=== PATIENT | male | born 1940 | race Caucasian/White ===

== ENCOUNTER 2017-08-13 16:13 | Emergency (ER) | payer MEDICARE, OTHER ==
--- NOTE | 2017-08-13 17:44 | EDM.PDOC ---
ED HPI GENERAL MEDICAL PROBLEM - General Chief Complaint: Upper Extremity Injury/Pain Stated Complaint: PAINS IN BOTH ARMS Time Seen by Provider: 08/13/17 16:35 Source of Information: Reports: Patient History Limitations: Reports: No Limitations - History of Present Illness INITIAL COMMENTS - FREE TEXT/NARRATIVE: pt arrived with chest pain in both forearms. He had something similar in 2012 and he ended up with a stent with the soaker in [place]. He sates this has been going on since late May and he is becoming concerned. Onset: Gradual, Other ( Pt has had daily since late May. ) Duration: Day(s): Location: Reports: Upper Extremity, Left, Upper Extremity, Right, Other (Pt has no chest pain) Associated Symptoms: Reports: No Other Symptoms Bilateral Arm Pain Score (Numeric/FACES): 1 - Related Data Allergies Allergy/AdvReac Type Severity Reaction Status Date / Time No Known Allergies Allergy Verified 08/13/17 16:37 Home Meds: Home Meds Aspirin [Ecotrin] 1 tab PO DAILY 08/13/17 [History] Lisinopril 1 tab PO BID 08/13/17 [History] atorvaSTATin [Lipitor] 10 mg PO BEDTIME 08/13/17 [History] metFORMIN [Glucophage] 1 tab PO BID 08/13/17 [History] Past Medical History HEENT History: Reports: Cataract Cardiovascular History: Reports: High Cholesterol, Hypertension, Stents Musculoskeletal History: Reports: Fracture Neurological History: Reports: Concussion Endocrine/Metabolic History: Reports: Diabetes, Type II - Past Surgical History HEENT Surgical History: Reports: Cataract Surgery Cardiovascular Surgical History: Reports: Coronary Artery Stent Social & Family History - Tobacco Use Smoking Status *Q: Former Smoker Used Tobacco, but Quit: Yes Month Tobacco Last Used: 0 - Alcohol Use Days Per Week of Alcohol Use: 4 Number of Drinks Per Day: 1 Total Drinks Per Week: 4 - Recreational Drug Use Recreational Drug Use: No Review of Systems - Review of Systems Review Of Systems: See Below Constitutional: Reports: No Symptoms Eyes: Reports: No Symptoms Ears: Reports: No Symptoms Nose: Reports: No Symptoms Mouth/Throat: Reports: No Symptoms Respiratory: Reports: No Symptoms Cardiovascular: Reports: No Symptoms GI/Abdominal: Reports: No Symptoms Genitourinary: Reports: No Symptoms Musculoskeletal: Reports: Other (pt has pain in the forearm of both upper extremities. ) Skin: Reports: No Symptoms ED EXAM, GENERAL - Physical Exam Exam: See Below Free Text/Narrative:: pt arrived with a history of pain in both forearms on and off since May. This is similar to the pain he had when he had a stent placed. --2012 Exam Limited By: No Limitations General Appearance: Alert, Anxious, Mild Distress Ears: Normal TMs Nose: Normal Inspection Throat/Mouth: Normal Inspection Head: Atraumatic Neck: Normal Inspection Respiratory/Chest: No Respiratory Distress Cardiovascular: Regular Rate, Rhythm GI/Abdominal: Soft, Non-Tender (Male) Exam: Deferred Rectal (Males) Exam: Deferred Back Exam: Normal Inspection Extremities: Normal Inspection Neurological: Alert, Oriented, Normal Cognition Psychiatric: Normal Affect Course - Vital Signs Last Recorded V/S: Last Vital Signs Temp 35.3 C 08/13/17 16:35 Pulse 82 08/13/17 17:24 Resp 14 08/13/17 17:24 BP 144/89 H 08/13/17 17:24 Pulse Ox 96 08/13/17 17:24 - Orders/Labs/Meds Orders: Active Orders 24 hr Category Date Time Status EKG Documentation Completion [RC] ASDIRECTED Care 08/13/17 16:34 Active EKG 12 Lead [EK] Routine Ther 08/13/17 16:34 Ordered Labs: Laboratory Tests 08/13/17 08/13/17 08/13/17 Range/Units 17:12 17:12 17:12 WBC 6.7 (4.5-11.0) K/uL RBC 4.52 (4.30-5.90) M/uL Hgb 15.0 (12.0-15.0) g/dL Hct 42.9 (40.0-54.0) % MCV 95 (80-98) fL MCH 33 H (27-31) pg MCHC 35 (32-36) % Plt Count 180 (150-400) K/uL Neut % (Auto) 69 H (36-66) % Lymph % (Auto) 18 L (24-44) % [place] % (Auto) 10 H (2-6) % Eos % (Auto) 2 (2-4) % Baso % (Auto) 1 (0-1) % Sodium 139 L (140-148) mmol/L Potassium 4.3 (3.6-5.2) mmol/L Chloride 101 (100-108) mmol/L Carbon Dioxide 29 (21-32) mmol/L Anion Gap 13.3 (5.0-14.0) mmol/L BUN 20 H (7-18) mg/dL Creatinine 1.4 H (0.8-1.3) mg/dL Est Cr Clr Drug Dosing 50.81 mL/min Estimated GFR (MDRD) 50 L (>60) Glucose 213 H (74-106) mg/dL Calcium 9.1 (8.5-10.1) mg/dL Total Bilirubin 0.7 (0.2-1.0) mg/dL AST 22 (15-37) U/L ALT 39 (12-78) U/L Alkaline Phosphatase 80 (46-116) U/L Creatine Kinase 104 (39-308) U/L Troponin I < 0.017 (0.000-0.056) ng/mL Total Protein 7.2 (6.4-8.2) g/dL Albumin 3.8 (3.4-5.0) g/dL Globulin 3.4 (2.3-3.5) g/dL Albumin/Globulin Ratio 1.1 L (1.2-2.2) - Re-Assessments/Exams Free Text/Narrative Re-Assessment/Exam: 08/13/17 17:57 pt had a ekg which did not show acute changes. He had normal trop. His creatnine is borderline at 1.4. 08/13/17 17:58 His bs is 213. Departure - Departure Time of Disposition: 18:04 Disposition: Home, Self-Care 01 Condition: Fair Clinical Impression: Angina at rest - Discharge Information Referrals: Chaitanya Lopez MD [Primary Care Provider] - Forms: ED Department Discharge Care Plan Goals: rtc for a leexiscan, appt with Dr Lopez on or thu. rtc if pain should suddenly get worse. - My Orders Last 24 Hours: My Active Orders 08/13/17 16:34 EKG Documentation Completion [RC] ASDIRECTED EKG 12 Lead [EK] Routine - Assessment/Plan Last 24 Hours: My Active Orders 08/13/17 16:34 EKG Documentation Completion [RC] ASDIRECTED EKG 12 Lead [EK] Routine
== END 2017-08-13 18:59 | disposition home or self-care (01) ==
LOC: JP.ED 16:13
DX: I20.9 Angina pectoris, unspecified (principal); I10 Essential (primary) hypertension; E78.00 Pure hypercholesterolemia, unspecified; Z87.891 Personal history of nicotine dependence; E11.9 Type 2 diabetes mellitus without complications; Z79.82 Long term (current) use of aspirin; Z79.84 Long term (current) use of oral hypoglycemic drugs; Z88.8 Allergy status to other drugs, medicaments and biological substances
CPT/HCPCS: 36415; 80053; 82550; 84484; 85025; 93005; 93010; 99284; 99284-25

== ENCOUNTER 2018-09-25 17:28 | Emergency (ER) | payer MEDICARE ==
--- NOTE | 2018-09-25 20:09 | CRLCR ---
HISTORY: Fever. TECHNIQUE: Two views of the chest. COMPARISON: No prior. FINDINGS: Right-sided Port-A-Cath with catheter tip terminating within the inferior SVC. Cardiac size within normal limits. No pulmonary vascular redistribution. No acute lung infiltrate or pulmonary edema. No pneumothorax or pleural effusion. Degenerative changes of the spine. IMPRESSION: No acute disease. Dictated by Narciso Correa MD @ 09/25/2018 8:07:02 PM Dictated by: Narciso Correa MD @ 09/25/2018 20:07:07 (Electronically Signed)
[2018-09-25] MEDS ORDERED: Piperacillin/Tazobactam 4.5 GM in Sodium Chloride 0.9% 100 ML IV ONE (20:24)
--- NOTE | 2018-09-25 21:07 | EDM.PDOC ---
ED HPI GENERAL MEDICAL PROBLEM - General Chief Complaint: Fever Stated Complaint: FEVER 100.5 ON CHEMOTHERAPY Time Seen by Provider: 09/25/18 19:00 Source of Information: Reports: Patient History Limitations: Reports: No Limitations - History of Present Illness INITIAL COMMENTS - FREE TEXT/NARRATIVE: 78-year-old with history of Hodgkin's lymphoma currently on chemotherapy, last infusion 10 days ago, presents with concerns of fever. He reports that he felt chills today so he took his temperature and it was 100.4. He was instructed by his oncologist to take a dose of ciprofloxacin and report to the ED. He otherwise has noticed right lower back pain ongoing for 3 days. Has history of similar pain in the past otherwise usually able to identify trigger for this. He denies any dysuria. No abdominal pain. No nausea vomiting. No cough. No dyspnea. No paresthesias or weakness in the lower extremity. - Related Data Allergies Allergy/AdvReac Type Severity Reaction Status Date / Time No Known Allergies Allergy Verified 09/25/18 18:19 Home Meds: Home Meds Aspirin [Ecotrin] 81 mg PO DAILY 08/13/17 [History] Lisinopril 2.5 mg PO BID 08/13/17 [History] atorvaSTATin [Lipitor] 10 mg PO BEDTIME 08/13/17 [History] metFORMIN [Glucophage] 500 mg PO BID 08/13/17 [History] Multivitamin [Multivitamins] 1 tab PO DAILY 08/17/17 [History] Carvedilol 09/25/18 [History] Ciprofloxacin HCl [Cipro] 09/25/18 [History] Dexamethasone 09/25/18 [History] Fluconazole [Diflucan] 09/25/18 [History] Glimepiride 09/25/18 [History] Past Medical History HEENT History: Reports: Cataract Cardiovascular History: Reports: High Cholesterol, Hypertension, Stents Musculoskeletal History: Reports: Fracture Neurological History: Reports: Concussion Endocrine/Metabolic History: Reports: Diabetes, Type II Oncologic (Cancer) History: Reports: Non-Hodgkin's Lymphoma - Past Surgical History HEENT Surgical History: Reports: Cataract Surgery Cardiovascular Surgical History: Reports: Coronary Artery Stent Social & Family History - Tobacco Use Smoking Status *Q: Never Smoker ED ROS GENERAL - Review of Systems Review Of Systems: See Below Constitutional: Reports: Fever HEENT: Reports: No Symptoms Respiratory: Reports: No Symptoms Cardiovascular: Reports: No Symptoms Endocrine: Reports: No Symptoms GI/Abdominal: Reports: No Symptoms : Reports: No Symptoms Musculoskeletal: Reports: Back Pain Skin: Reports: No Symptoms Neurological: Reports: No Symptoms Psychiatric: Reports: No Symptoms Hematologic/Lymphatic: Reports: No Symptoms Immunologic: Reports: No Symptoms ED EXAM, SEPSIS - Physical Exam Exam: See Below Exam Limited By: No Limitations General Appearance: Alert, WD/WN Ears: Normal External Exam Nose: Normal Inspection Throat/Mouth: Normal Inspection Head: Atraumatic, Normocephalic Neck: Normal Inspection, Full Range of Motion Respiratory/Chest: No Respiratory Distress, Lungs Clear Cardiovascular: Regular Rate, Rhythm GI/Abdominal Exam: Soft, Non-Tender Back: Normal Inspection. No: Paraspinal Tenderness, Vertebral Tenderness Extremities: Normal Inspection Neurological: Alert, Oriented Psychiatric: Normal Affect, Normal Mood Skin: Warm, Dry. No: Wound/Incision Course - Vital Signs Last Recorded V/S: Last Vital Signs Temp 36.4 C 09/25/18 19:42 Pulse 82 09/25/18 19:42 Resp 16 09/25/18 19:42 BP 144/92 H 09/25/18 19:42 Pulse Ox 94 L 09/25/18 19:42 - Orders/Labs/Meds Labs: Laboratory Tests 09/25/18 09/25/18 09/25/18 Range/Units 18:48 19:35 19:35 WBC 0.8 L* (4.5-11.0) K/uL RBC 4.58 (4.30-5.90) M/uL Hgb 14.5 (12.0-15.0) g/dL Hct 42.1 (40.0-54.0) % MCV 92 (80-98) fL MCH 32 H (27-31) pg MCHC 34 (32-36) % Plt Count 199 (150-400) K/uL Add Manual Diff Yes Neutrophils % (Manual) 6 L (36-66) % Band Neutrophils % 4 L (5-11) % Lymphocytes % (Manual) 38 (24-44) % Monocytes % (Manual) 50 H (2-6) % Eosinophils % (Manual) 2 (2-4) % Polychromasia Sodium 131 L (140-148) mmol/L Potassium 4.5 (3.6-5.2) mmol/L Chloride 94 L (100-108) mmol/L Carbon Dioxide 27 (21-32) mmol/L Anion Gap 14.5 H (5.0-14.0) mmol/L BUN 32 H D (7-18) mg/dL Creatinine 1.2 (0.8-1.3) mg/dL Est Cr Clr Drug Dosing 57.48 mL/min Estimated GFR (MDRD) 59 L (>60) Glucose 139 H (74-106) mg/dL Calcium 9.2 (8.5-10.1) mg/dL Total Bilirubin 0.9 (0.2-1.0) mg/dL AST 18 (15-37) U/L ALT 32 (12-78) U/L Alkaline Phosphatase 76 (46-116) U/L Total Protein 7.0 (6.4-8.2) g/dL Albumin 3.2 L (3.4-5.0) g/dL Globulin 3.8 H (2.3-3.5) g/dL Albumin/Globulin Ratio 0.8 L (1.2-2.2) Urine Color Yellow Urine Appearance Clear Urine pH 7.0 (4.5-8.0) Ur Specific [place] 1.015 (1.008-1.030) Urine Protein 30 H (NEGATIVE) mg/dL Urine Glucose (UA) 100 H (NEGATIVE) mg/dL Urine Ketones Negative (NEGATIVE) mg/dL Urine Occult Blood Trace (NEGATIVE) Urine Nitrite Negative (NEGAITVE) Urine Bilirubin Negative (NEGATIVE) Urine Urobilinogen Normal (NORMAL) mg/dL Ur Leukocyte Esterase Negative (NEGATIVE) Meds: Medications Discontinued Medications Generic Name Dose Route Start Last Admin Trade Name Freq PRN Reason Stop Dose Admin Piperacillin Sod/Tazobactam 100 mls @ 100 mls/hr 09/25/18 20:24 09/25/18 20: 42 Sod 4.5 gm/ Sodium Chloride IV 09/25/18 21:23 100 mls/hr ONETIME ONE Administration Vancomycin HCl 1.5 gm/ Sodium 250 mls @ 150 mls/hr 09/25/18 20:25 09/25/18 21 :40 Chloride IV 09/25/18 22:04 150 mls/hr ONETIME ONE Administration - Re-Assessments/Exams Free Text/Narrative Re-Assessment/Exam: 78-year-old with history of Hodgkin's lymphoma currently on chemotherapy presents with concerns of fever of 100.4. Last chemotherapy infusion 10 days ago. no symptoms or exam findings to suggest focal source for infection. does have right lower back pain, positional, neurologically intact, do not feel this likely represent spinal cord infection. Does not have CVA tenderness and urine is clear. Abdominal exam is benign. Pulmonary exam unremarkable and chest x-ray clear. CBC remarkable for ANC of 80. discussed case with the patient's on-call oncologist. Advised to give dose of broad-spectrum antibiotics and admit for further evaluation. Vanc and Zosyn ordered per oncologist suggestion. Oncologist raised concern for possible bowel perforation given his low back pain , however abdominal exam is benign he has no free air on his upright chest x-ray , he is very well-appearing and believe this is unlikely at this time. If there is worsening of his pain symptoms CT may be warranted, will communicate this to accepting the hospitalist. No beds available at current facility. Will transfer to [place] for further work up 09/25/18 21:13 Departure - Departure Time of Disposition: 01:02 Disposition: DC/Tfer to [facility] Clinical Impression: Neutropenic fever - Discharge Information *PRESCRIPTION DRUG MONITORING PROGRAM REVIEWED*: No *COPY OF PRESCRIPTION DRUG MONITORING REPORT IN PATIENT TRAE: No Referrals: Chaitanya Lopez MD [Primary Care Provider] - Forms: ED Department Discharge
== END 2018-09-26 04:40 ==
LOC: JP.ED 17:28
DX: D70.9 Neutropenia, unspecified (principal); R50.81 Fever presenting with conditions classified elsewhere; E11.9 Type 2 diabetes mellitus without complications; Z79.899 Other long term (current) drug therapy; Z79.84 Long term (current) use of oral hypoglycemic drugs; Z79.82 Long term (current) use of aspirin
CPT/HCPCS: 36415; 71046; 80053; 81003; 85025; 87804; 96365; 96366; 96367; 99285; J1642; J2543; J3370; J7030; J7050

== ENCOUNTER 2020-04-05 06:23 | Day surgery (SDC) | payer MEDICARE ==
[2020-04-05] MEDS ORDERED: Sodium Chloride 0.9% 1,000 ML IV SCH (07:15)
[2020-04-05] MEDS ORDERED: Midazolam 1 MG/ML 2 ML SDV ONE (07:54)
[2020-04-05] MEDS ORDERED: fentaNYL 100 MCG/2 ML SDV ONE (07:54)
[2020-04-05] MEDS ORDERED: Propofol 200 MG/20 ML SDV ONE (07:54)
--- NOTE | 2020-04-05 11:34 | OR ---
DATE OF PROCEDURE: 04/05/2020 SURGEON: Mack Hope MD PROCEDURE: Esophagogastroduodenoscopy with biopsy and dilation. FINDINGS/PATHOLOGY: 1. Plaque-like lesions in duodenal bulb (biopsied using cold biopsy forceps). 2. Mild inflammation of the GE junction concerning for gastroesophageal reflux disease (biopsied in all 4 quadrants). 3. Polyp-like lesions in mid to proximal esophagus (biopsied using cold biopsy forceps). 4. Narrowing of GE junction (dilated using 46-[place] balloon). COMPLICATIONS: None. LABOR AND DELIVERY REGISTERED NURSE: None. PREOPERATIVE DIAGNOSIS: Dysphagia. POSTOPERATIVE DIAGNOSIS: Dysphagia. RISKS: Risks, benefits, alternatives, and limitations including, but not limited to infection, bleeding, and perforation were explained to the patient, who wished to proceed. PROCEDURE IN DETAIL: The patient was placed in left lateral decubitus position. The EGD scope was introduced and advanced atraumatically to second part of the duodenum. Within the duodenal bulb itself, there are polypoid-type lesions. These were less than 10. Several of these were biopsied using cold biopsy forceps. Within the stomach itself, there was no evidence of gastritis or ulceration. The GE junction showed mild inflammation and narrowing concerning for gastroesophageal reflux disease. This was biopsied using cold biopsy forceps and dilated with a 46-[place] balloon to stage II. In the mid proximal esophagus, there were also plaque-like lesions, which were biopsied using cold biopsy forceps. The patient tolerated the procedure well. Mack Hope MD /[id number]
== END 2020-04-05 09:45 | disposition home or self-care (01) ==
LOC: JP.SDS 06:23
PROVIDERS: ATTEND Surgery
DX: K29.50 Unspecified chronic gastritis without bleeding (principal); K22.8 Other specified diseases of esophagus; K21.0 Gastro-esophageal reflux disease with esophagitis; K31.89 Other diseases of stomach and duodenum; K29.90 Gastroduodenitis, unspecified, without bleeding; I10 Essential (primary) hypertension; E78.5 Hyperlipidemia, unspecified; E11.9 Type 2 diabetes mellitus without complications; I25.10 Atherosclerotic heart disease of native coronary artery without angina pectoris
CPT/HCPCS: 43239; 43249; J1642; J2250; J2704; J3010; J7030; 88305; 88312